=== PATIENT | female | born 1995 | race Caucasian/White ===

== ENCOUNTER 2019-01-01 22:52 | Emergency (ER) | payer MEDICAID ==
[~2019-01-01] VITALS: Ht 157.5 cm; Wt 95.0 kg
[2019-01-02 01:11] LABS: CLARITY URINE CLEAR (CLEAR); COLOR URINE YELLOW (YELLOW); KETONES URINE TRACE (NEGATIVE); LEUKOCYTE ESTERASE URINE NEGATIVE (NEGATIVE); NITRITE URINE NEGATIVE (NEGATIVE); OCCULT BLOOD URINE NEGATIVE (NEGATIVE); PH URINE 5.5 (4.5-8.0); PROTEIN URINE NEGATIVE (NEGATIVE); SPECIFIC GRAVITY URINE 1.024 (1.005-1.030); UROBILINOGEN URINE 0.2 E.U./dL (0.2-1.0)
[2019-01-02 02:16] VITALS: BP 116/87
== END 2019-01-02 05:05 | disposition left against medical advice (07) ==
LOC: ER 22:52
DX: Z53.21 Procedure and treatment not carried out due to patient leaving prior to being seen by health care provider (principal)
CPT/HCPCS: 81025

== ENCOUNTER 2019-07-01 20:23 | Observation (INO) | payer OTHER ==
[~2019-07-01] VITALS: Ht 157.5 cm; Wt 111.6 kg
[2019-07-01] MEDS ORDERED: FERR-71 PO (21:51)
[2019-07-01] MEDS ORDERED: CALC-1042 PO (21:51)
[2019-07-01] MEDS ORDERED: FOLI-43 PO (21:51)
[2019-07-01] MEDS ORDERED: PNV1TABL50 PO (21:51)
[2019-07-01 22:02] LABS: CLARITY URINE CLEAR (CLEAR); COLOR URINE YELLOW (YELLOW); KETONES URINE NEGATIVE (NEGATIVE); LEUKOCYTE ESTERASE URINE NEGATIVE (NEGATIVE); NITRITE URINE NEGATIVE (NEGATIVE); OCCULT BLOOD URINE NEGATIVE (NEGATIVE); PROTEIN URINE NEGATIVE (NEGATIVE); SPECIFIC GRAVITY URINE 1.019 (1.005-1.030); UROBILINOGEN URINE 0.2 E.U./dL (0.2-1.0)
== END 2019-07-01 23:45 | disposition home or self-care (01) ==
LOC: 8 EST LDRP 20:23
PROVIDERS: ADMIT Obstetrics & Gynecology; ATTEND Obstetrics & Gynecology
DX: O26.893 Other specified pregnancy related conditions, third trimester (principal); R10.30 Lower abdominal pain, unspecified; Z98.891 History of uterine scar from previous surgery; Z3A.32 32 weeks gestation of pregnancy
CPT/HCPCS: 76805; 76818; 81003; 99281; G0378